=== PATIENT | male | born 1965 | race Caucasian/White ===

== ENCOUNTER → 2018-03-13 | Outpatient (CLI) | payer OTHER ==
--- NOTE | 2018-03-13 13:31 | US ---
EXAMINATION TYPE: US scrotum with doppler. Grayscale and color Doppler Duplex imaging performed of t mckinley scrotum. DATE OF EXAM: 03/13/2018 COMPARISON: NONE CLINICAL HISTORY: N45.1 Pain Rt Inguinal with lifting. EXAM MEASUREMENTS: TESTICLES: Right Testicle: 4.4 X 2.4 X 4.2 cm Left Testicle: 4.8 X 2.3 X 3.3 cm EPIDIDYMIS HEAD: Right Epididymis: 1.3 X 1.2 cm Left Epididymis: 1.2 X 0.9 cm Doppler performed to assess for testicular vascularity; good bilateral color flow and waveforms are s een. Presence of hydroceles: small amount of fluid surrounding bilateral testicles. Comparison view shows symmetric blood flow to both testicles. IMPRESSION: Symmetric blood flow to both testicles seen.
== END | disposition home or self-care (01) ==
LOC: RADUSWWP 12:38
PROVIDERS: ATTEND Emergency Medicine
DX: N45.1 Epididymitis (principal)
CPT/HCPCS: 76870; 93975

== ENCOUNTER → 2018-04-25 | Outpatient (CLI) | payer OTHER ==
--- NOTE | 2018-04-25 22:22 | CT ---
EXAMINATION TYPE: CT pelvis w con DATE OF EXAM: 04/25/2018 COMPARISON: NONE HISTORY: 53-year-old male unilateral inguinal hernia without obstruction, RLQ pain x3 weeks TECHNIQUE: Contiguous axial scanning of the pelvis following administration of 100 ml Isovue 300 IV c ontrast. Delayed images through the bladder and coronal/sagittal reconstructions performed. CT DLP: 881 mGycm Automated exposure control for dose reduction was used. FINDINGS: Moderate atherosclerotic plaque within the infrarenal abdominal aorta. Bilateral kissing common iliac artery stents are present. No dilated small bowel, free fluid, or free air. Nlva-op-fsmkgxby stool burden partially visualized. Scattered sigmoid diverticulosis. No pericolonic inflammatory change. Prostate gland enlargement measuring 4.9 cm wide. The bladder is urine distended. No sizable inguinal or femoral canal hernia is identified. No abnormal fluid collection in the pelvis or pelvic lymphadenopathy. Bones: No osseous structure process. IMPRESSION: 1. NO SIZABLE INGUINAL OR FEMORAL CANAL HERNIA. 2. SIGMOID DIVERTICULOSIS. 3. BILATERAL COMMON ILIAC ARTERY STENTS.
== END | disposition home or self-care (01) ==
LOC: RADCTMAIN 16:45
PROVIDERS: ATTEND Surgery
DX: K57.30 Diverticulosis of large intestine without perforation or abscess without bleeding (principal); Z96.89 Presence of other specified functional implants
CPT/HCPCS: 72193; Q9967

== ENCOUNTER → 2018-10-23 | Outpatient (CLI) | payer OTHER ==
--- NOTE | 2018-10-24 08:46 | CT ---
EXAMINATION TYPE: CT iac wo con DATE OF EXAM: 10/23/2018 COMPARISON: None HISTORY: hearing loss CT DLP: 206.6 mGycm Automated exposure control for dose reduction was used. TECHNIQUE: Axial images at 1.5 mm thick sections through the temporal bones. Reconstructed images in the coronal plane. Bone and soft tissue windows are reviewed. Studies performed without intravenous c ontrast. This will limit the examination for smaller abnormalities. FINDINGS: Torus tubarius and fossa of Rosenmuller appear within normal limits. Road Commissioner spaces are normal. Or bits appear unremarkable. Mild mucosal thickenings within left ethmoid air cells. Retention cyst may be within the right frontal sinus and small retention cyst within the left frontal sinus. Paranasal s inuses otherwise appear clear Mastoid air cells appear clear. Attention is paid to the internal auditory canals. No expansion or erosion is evident. Cochlea appear normal. Semicircular canals appear normal. No cerebellar pontine angle masses are evident. External auditory canals are normal. Middle ears are clear. Some thickening along the left tympanic membrane m ay be present. Right tympanic membrane not identified. Incus and malleus appear normal. Attics are cl ear. Scutum are normal. IMPRESSION: 1. THERE MAY BE SOME THICKENING ALONG THE LEFT TYMPANIC MEMBRANE. CORRELATE WITH THE PATIENT'S SYMPTO MS. 2. ACUTE SUSPICIOUS ABNORMALITY NOT OTHERWISE IDENTIFIED. 3. MILD MUCOSAL THICKENING OR RETENTION CYSTS WITHIN ETHMOID AIR CELLS AND FRONTAL SINUSES.
== END | disposition home or self-care (01) ==
LOC: RADCTMAIN 16:06
PROVIDERS: ATTEND Otolaryngology
DX: H66.92 Otitis media, unspecified, left ear (principal)
CPT/HCPCS: 70480

== ENCOUNTER → 2022-08-16 | Outpatient (CLI) | payer OTHER ==
[2022-08-16 14:53] LABS: ALT 29 U/L (10-49); AST 21 U/L (14-35); Chol/HDL Ratio 2.75 Ratio; LDL Cholesterol,Calculated 57.6 mg/dL (0.0-131.0)
== END | disposition home or self-care (01) ==
LOC: LABWHC1 09:17
PROVIDERS: ATTEND Internal Medicine Interventional Cardiology
DX: E78.00 Pure hypercholesterolemia, unspecified (principal)
CPT/HCPCS: 36415; 80061; 84450; 84460

== ENCOUNTER → 2023-02-17 | Outpatient (CLI) | payer OTHER ==
[2023-02-17 15:19] LABS: HCT 43.7 % (39.6-50.0); HGB 14.9 g/dL (13.0-17.0); MCHC 34.1 g/dL (32.0-37.0); NRBC Per 100 WBC 0 /100 WBCS (0.0-0.0); Platelet Count 290 X 10*3/uL (140-440); RDW 12.2 % (11.5-14.5); WBC 8.53 X 10*3/uL (4.50-10.00)
[2023-02-17 15:59] LABS: ALT 33 U/L (10-49); AST 26 U/L (14-35); African American GFR (CKD) 102.1 (60.0-200.0); Albumin 4.5 g/dL (3.8-4.9); Alkaline Phosphatase 96 U/L (41-126); BUN/Creat Ratio 13.19 Ratio (12.00-20.00); Blood Urea Nitrogen 12.5 mg/dL (9.0-27.0); Calcium 9.8 mg/dL (8.7-10.3); Carbon Dioxide 23.8 mmol/L (20.0-27.5); Chloride 105 mmol/L (96-109); Chol/HDL Ratio 2.91 Ratio; Globulin 2.4 g/dL (1.6-3.3); Glucose 98 mg/dL (70-110); LDL Cholesterol,Calculated 78.8 mg/dL (0.0-131.0); Non-African American GFR(CKD) 88.1 (60.0-200.0); Potassium 4.6 mmol/L (3.5-5.5); Sodium 140 mmol/L (135-145); Total Protein 6.9 g/dL (6.2-8.2); VLDL Calculation 18.44 mg/dL (5.00-40.00)
== END | disposition home or self-care (01) ==
LOC: LABWHC1 09:56
PROVIDERS: ATTEND Family Medicine
DX: Z00.01 Encounter for general adult medical examination with abnormal findings (principal)
CPT/HCPCS: 36415; 80053; 80061; 84153; 85027

== ENCOUNTER 2023-09-05 09:27 | Emergency (ER) | payer OTHER ==
[2023-09-05 09:59] LABS: Glucose,Whole Blood 115 mg/dL (70-110)
[2023-09-05] MEDS ORDERED: SODIUM CHLORIDE 0.9% 1,000 ML IV STA (10:01)
--- NOTE | 2023-09-05 10:02 | ED ---
General Adult HPI - General Chief complaint: Syncope Stated complaint: Near Syncope Time Seen by Provider: 09/05/23 09:35 Source: patient, EMS Mode of arrival: EMS Limitations: no limitations - History of Present Illness Initial comments: Dictation was produced using [employer] dictation software. please excuse any grammatical, word or spelling errors. Chief Complaint: 58-year-old male presents to the ER for dizziness History of Present Illness: Patient is 58-year-old male has multiple comorbidities states that today he had a severe episode of dizziness. He is at work sitting on his cart when all of a sudden he felt an intense episode of sensation of the room spinning. States that he had to lay down for several minutes until his symptoms resolve. Patient states that he feels back to baseline currently. Patient has a headache. No numbness and paresthesias. Denies having had any palpitations prior to the onset of symptoms. The ROS documented in this emergency department record has been reviewed and confirmed by me. Those systems with pertinent positive or negative responses have been documented in the HPI. All other systems are other negative and/or noncontributory. - Related Data Home Medications Medication Instructions Recorded Confirmed Esomeprazole Magnesium [NexIUM] 40 mg PO DAILY 04/24/14 09/05/23 amLODIPine [Norvasc] 10 mg PO DAILY 04/25/14 09/05/23 Losartan Potassium 100 mg PO DAILY 05/28/14 09/05/23 Aspirin 325 mg PO HS 09/05/23 09/05/23 Atorvastatin [Lipitor] 80 mg PO HS 09/05/23 09/05/23 Ezetimibe [Zetia] 10 mg PO DAILY 09/05/23 09/05/23 Allergies Allergy/AdvReac Type Severity Reaction Status Date / Time No Known Allergies Allergy Verified 09/05/23 10:54 Review of Systems ROS Statement: Those systems with pertinent positive or pertinent negative responses have been documented in the HPI. ROS Other: All systems not noted in ROS Statement are negative. Past Medical History Past Medical History: GERD/Reflux, Hyperlipidemia, Hypertension, Osteoarthritis (OA), Sleep Apnea/CPAP/BIPAP, Vascular Disorder Additional Past Medical History / Comment(s): arthritis History of Any Multi-Drug Resistant Organisms: None Reported Past Surgical History: Hernia Repair, Tonsillectomy Additional Past Surgical History / Comment(s): DYE TEST FOR LEGS, femoral stent Past Anesthesia/Blood Transfusion Reactions: No Reported Reaction Past Psychological History: No Psychological Hx Reported Smoking Status: Former smoker Past Alcohol Use History: None Reported Past Drug Use History: None Reported - Past Family History Mother Family Medical History: Cancer General Exam - General Exam Comments Initial Comments: PHYSICAL EXAM: General Impression: Alert and oriented x3, not in acute distress HEENT: Normocephalic atraumatic, extra-ocular movements intact, pupils equal and reactive to light bilaterally, mucous membranes moist. Cardiovascular: Heart regular rate and rhythm Chest: Able to complete full sentences, no retractions, no tachypnea Abdomen: abdomen soft, non-tender, non-distended, no organomegaly Musculoskeletal: Pulses present and equal in all extremities, no peripheral edema Motor: no focal deficits noted Neurological: CN II-XII grossly intact, no focal motor or sensory deficits noted Skin: Intact with no visualized rashes Psych: Normal affect and mood Limitations: no limitations Course Vital Signs 09/05/23 09/05/23 09:31 09:46 Temperature 97.8 F Pulse Rate 74 Pulse Rate [ 67 Left Sitting Siderographer ] Pulse Rate [ 87 Left Standing Siderographer ] Respiratory 18 18 Rate Blood Pressure 106/73 Blood Pressure 101/74 [Left Arm Sitting] Blood Pressure 94/67 [Left Arm Standing] Blood Pressure 121/66 [Left Arm Supine] O2 Sat by Pulse 97 96 Oximetry EKG Findings - EKG Comments: EKG Findings:: My EKG interpretation: Ventricular rate 66, sinus rhythm,. 189, QRS 95, QTc 44. No W[place] prolongation, no QTC prolongation, no ST or T-wave changes noted. Overall, this EKG is unremarkable Medical Decision Making - Medical Decision Making Was pt. sent in by a medical professional or institution (, PA, TEXTILE KNITTER, urgent care, hospital, or halfway...) When possible be specific @ -No Did you speak to anyone other than the patient for history (EMS, parent, family, police, friend...)? What history was obtained from this source @ -No Did you review nursing and triage notes (agree or disagree)? Why? @ -I reviewed and agree with nursing and triage notes Were old charts reviewed (outside hosp., previous admission, EMS record, old EKG, old radiological studies, urgent care reports/EKG's, halfway records)? Report findings @ -No old charts were reviewed Differential Diagnosis (chest pain, altered mental status, abdominal pain women, abdominal pain men, vaginal bleeding, musculoskeletal, weakness, fever, dyspnea, syncope, headache, dizziness, GI bleed, back pain, seizure, CVA, palpatations, mental health)? @ -DDifferential Dizziness: Benign paroxysmal positional Vertigo, Menieres disease, otitis media, acoustic neuroma, vertebrobasilar insufficiency, cerebellar stroke, encephalitis, hypovolemic, arrhythmia, coronary artery syndrome, anemia, this is not meant to be an all-inclusive list EKG interpreted by me (3pts min.). @ -See above X-rays interpreted by me (1pt min.). @ -None done CT interpreted by me (1pt min.). @ -None done U/S interpreted by me (1pt. min.). @ -None done What testing was considered but not performed or refused? (CT, X-rays, U/S, labs)? Why? @ -None What meds were considered but not given or refused? Why? @ -None Did you discuss the management of the patient with other professionals (professionals i.e. , PA, TEXTILE KNITTER, lab, RT, psych nurse, social science manager, section crews activities clerk, te acher, unemployment insurance hearing officer, rehabilitation case coordinator)? Give summary @ -no Was smoking cessation discussed for >3mins.? @ -No Was critical care preformed (if so, how long)? @ -No Were there social determinants of health that impacted care today? How? (Homelessness, low income, unemployed, alcoholism, drug addiction, transportation, low edu. Level, literacy, decrease access to med. care, [facility], rehab)? @ -No Was there de-escalation of care discussed even if they declined (Discuss DNR or withdrawal of care, Hospice)? DNR status @ -No What co-morbidities impacted this encounter? (DM, HTN, Smoking, COPD, CAD, Cancer, CVA, ARF, Chemo, Hep., AIDS, mental health diagnosis, sleep apnea, morbid obesity)? @ -None Was patient admitted / discharged? Hospital course, mention meds given and rou te, prescriptions, significant lab abnormalities, going to OR and other pertinent info. @ -58-year-old male presents emergency part for episode of dizziness. Vital signs are stable. Patient does have slightly decreased blood pressure with standing. However he did not complain of much symptoms during his orthostatic blood pressure measurement. Laboratory evaluation obtained. There is a mild non-gap acidosis. States that he hasn't been eating and drinking. Patient given IV fluids patient had an uneventful short ER observation. Patient clear for discharge with follow-up to primary care doctor. Undiagnosed new problem with uncertain prognosis? @ -No Drug Therapy requiring intensive monitoring for toxicity (Heparin, Nitro, Insulin, Cardizem)? @ -No Were any procedures done? @ -No Diagnosis/symptom? Acute, or Chronic, or Acute on Chronic? Uncomplicated (without systemic symptoms) or Complicated (systemic symptoms)? @ -Dizziness episode, no high-risk features Side effects of treatment? @ -No Exacerbation, Progression, or Severe Exacerbation? @ -No Poses a threat to life or bodily function? How? (Chest pain, USA, CA, pneumonia, PE, COPD, DKA, ARF, appy, cholecystitis, CVA, Diverticulitis, Homicidal, Suicidal, threat to staff... and all critical care pts) @ -No - Lab Data Result diagrams: 09/05/23 10:09 09/05/23 10:09 Lab Results 09/05/23 09/05/23 09/05/23 Range/Units 09:57 10:09 10:09 WBC 6.4 (3.8-10.6) k/uL RBC 4.45 (4.30-5.90) m/uL Hgb 14.1 (13.0-17.5) gm/dL Hct 41.0 (39.0-53.0) % MCV 92.2 (80.0-100.0) fL MCH 31.6 (25.0-35.0) pg MCHC 34.2 (31.0-37.0) g/dL RDW 12.1 (11.5-15.5) % Plt Count 226 (150-450) k/uL MPV 7.7 Neutrophils % 70 % Lymphocytes % 16 % Monocytes % 11 % Eosinophils % 0 % Basophils % 0 % Neutrophils # 4.5 (1.3-7.7) k/uL Lymphocytes # 1.0 (1.0-4.8) k/uL Monocytes # 0.7 (0-1.0) k/uL Eosinophils # 0.0 (0-0.7) k/uL Basophils # 0.0 (0-0.2) k/uL Sodium 136 L (137-145) mmol/L Potassium 3.7 (3.5-5.1) mmol/L Chloride 107 (98-107) mmol/L Carbon Dioxide 19 L (22-30) mmol/L Anion Gap 10 mmol/L BUN 17 (9-20) mg/dL Creatinine 1.05 (0.66-1.25) mg/dL Est GFR (CKD-EPI)AfAm >90 (>60 ml/min/1.73 sqM) Est GFR (CKD-EPI)NonAf 78 (>60 ml/min/1.73 sqM) Glucose 107 H (74-99) mg/dL POC Glucose (mg/dL) 115 H (70-110) mg/dL POC Glu Acid Adjuster ID Yeyo Dia Calcium 8.2 L (8.4-10.2) mg/dL Disposition Clinical Impression: Vertigo Disposition: HOME SELF-CARE Condition: Good Instructions (If sedation given, give patient instructions): Vertigo (ED) Is patient prescribed a controlled substance at d/c from ED?: No Referrals: Lion Diaz MD [Primary Care Provider] - 1-2 days Time of Disposition: 11:09
[2023-09-05 10:16] VITALS: RESP 18; TEMP 97.8
[2023-09-05 10:29] LABS: Basophils % (A) 0 %; Eosinophils % (A) 0 %; HGB 14.1 gm/dL (13.0-17.5); Lymphocytes % (A) 16 %; MCH 31.6 pg (25.0-35.0); MCHC 34.2 g/dL (31.0-37.0); MCV 92.2 fL (80.0-100.0); Mean Platelet Volume 7.7; Monocytes # (A) 0.7 k/uL (0-1.0); Monocytes % (A) 11 %; Neutrophils # (A) 4.5 k/uL (1.3-7.7); Neutrophils % (A) 70 %; Platelet Count 226 k/uL (150-450); RBC 4.45 m/uL (4.30-5.90); RDW 12.1 % (11.5-15.5); WBC 6.4 k/uL (3.8-10.6)
[2023-09-05 10:44] LABS: African American GFR (CKD) >90 (>60 ml/min/1.73 sqM); Anion Gap 10 mmol/L; Blood Urea Nitrogen 17 mg/dL (9-20); Calcium 8.2 mg/dL (8.4-10.2); Carbon Dioxide 19 mmol/L (22-30); Chloride 107 mmol/L (98-107); Glucose 107 mg/dL (74-99); Non-African American GFR(CKD) 78 (>60 ml/min/1.73 sqM); Potassium 3.7 mmol/L (3.5-5.1); Sodium 136 mmol/L (137-145)
[2023-09-05 11:31] VITALS: BP 113/76; PULSE 78
== END 2023-09-05 11:22 | disposition home or self-care (01) ==
LOC: EC 09:27
DX: R42 Dizziness and giddiness (principal); I10 Essential (primary) hypertension; E78.5 Hyperlipidemia, unspecified; K21.9 Gastro-esophageal reflux disease without esophagitis; Z79.82 Long term (current) use of aspirin; Z79.899 Other long term (current) drug therapy; Z87.891 Personal history of nicotine dependence
CPT/HCPCS: 36415; 80048; 85025; 93005; 96360; 99284

== ENCOUNTER → 2024-01-30 | Outpatient (CLI) | payer OTHER ==
--- NOTE | 2024-01-30 11:37 | XR ---
EXAMINATION TYPE: XR shoulder complete RT DATE OF EXAM: 01/30/2024 COMPARISON: NONE HISTORY: Pain TECHNIQUE: Three views are submitted. FINDINGS: AC joint is maintained. Lung marcelo clear. The tiny bony density seen just above the coracoid process of the scapula. I question the forming a chronic basis of the right lateral fourth rib. Visualized h umerus is intact. IMPRESSION: 1. Findings are suspicious for a tiny avulsion fracture coracoid process of the scapula correlate wit h point tenderness.
== END | disposition home or self-care (01) ==
LOC: RADXRMAIN 11:13
PROVIDERS: ATTEND Emergency Medicine
DX: M25.511 Pain in right shoulder (principal); S46.911A Strain of unspecified muscle, fascia and tendon at shoulder and upper arm level, right arm, initial encounter; X58.XXXA Exposure to other specified factors, initial encounter

== ENCOUNTER → 2024-02-22 | Outpatient (CLI) | payer OTHER ==
[2024-02-22 15:42] LABS: Blood Urea Nitrogen 18.9 mg/dL (9.0-27.0); Chol/HDL Ratio 2.47 Ratio; Glucose 103 mg/dL (70-110); LDL Cholesterol,Calculated 62.8 mg/dL (0.0-131.0)
[2024-02-22 15:43] LABS: ALT 40 U/L (10-49); AST 20 U/L (14-35); Albumin 4.6 g/dL (3.8-4.9); Alkaline Phosphatase 95 U/L (41-126); Calcium 9.7 mg/dL (8.7-10.3); Carbon Dioxide 23.9 mmol/L (21.6-31.8); Chloride 100 mmol/L (96-109); Globulin 2.3 g/dL (1.6-3.3); Potassium 3.7 mmol/L (3.5-5.5); Sodium 140 mmol/L (135-145); Total Bilirubin 0.6 mg/dL (0.3-1.2); Total Protein 6.9 g/dL (6.2-8.2)
[2024-02-22 16:04] LABS: HCT 47.1 % (39.6-50.0); MCH 30.9 pg (27.0-32.0); MCV 90.9 FL (80.0-97.0); NRBC Per 100 WBC 0 X 10*3/uL (0.00-0.01); Platelet Count 295 X 10*3/uL (140-440); RBC 5.18 X 10*6/uL (4.40-5.60); RDW 12.4 % (11.5-14.5); WBC 13.95 X 10*3/uL (4.50-10.00)
== END | disposition home or self-care (01) ==
LOC: LABWHC1 08:43
PROVIDERS: ATTEND Family Medicine
DX: Z00.01 Encounter for general adult medical examination with abnormal findings (principal)
CPT/HCPCS: 36415; 80053; 80061; 84153; 85027

== ENCOUNTER → 2025-02-10 | Outpatient (CLI) | payer OTHER ==
[2025-02-10 18:10] LABS: HCT 40.8 % (39.6-50.0); HGB 13.9 g/dL (13.0-17.0); MCH 30.5 pg (27.0-32.0); MCHC 34.1 g/dL (32.0-37.0); MCV 89.5 FL (80.0-97.0); Mean Platelet Volume 9.6 FL (9.5-12.2); NRBC Per 100 WBC 0 X 10*3/uL (0.00-0.01); Platelet Count 305 X 10*3/uL (140-440); RBC 4.56 X 10*6/uL (4.40-5.60); RDW 12.3 % (11.5-14.5); WBC 12.26 X 10*3/uL (4.50-10.00)
[2025-02-10 18:28] LABS: ALT 37 U/L (10-49); AST 24 U/L (14-35); Albumin 4.2 g/dL (3.8-4.9); Albumin/Globulin Ratio 1.83 Ratio (1.60-3.17); Alkaline Phosphatase 101 U/L (41-126); Blood Urea Nitrogen 14.3 mg/dL (9.0-27.0); Calcium 9.3 mg/dL (8.7-10.3); Carbon Dioxide 22.2 mmol/L (21.6-31.8); Chloride 103 mmol/L (96-109); Chol/HDL Ratio 2.96 Ratio; Globulin 2.3 g/dL (1.6-3.3); Glucose 83 mg/dL (70-110); LDL Cholesterol,Calculated 60.1 mg/dL (0.0-131.0); Potassium 3.9 mmol/L (3.5-5.5); Prostate Specific Antigen 0.44 ng/mL (0.000-4.500); Sodium 138 mmol/L (135-145); Total Bilirubin 0.5 mg/dL (0.3-1.2); Total Protein 6.5 g/dL (6.2-8.2)
== END | disposition home or self-care (01) ==
LOC: LABWHC1 15:38
PROVIDERS: ATTEND Family Medicine
DX: Z00.01 Encounter for general adult medical examination with abnormal findings (principal)
CPT/HCPCS: 36415; 80053; 80061; 84153; 85027